=== PATIENT | female | born 1965 | race African-American/Black ===

== ENCOUNTER 2025-01-28 10:48 | Emergency (ER) | payer OTHER, MEDICAID ==
[2025-01-28] MEDS ORDERED: IOHEXOL 300 MG/ML 100 ML VIAL IV ONE (11:05)
[2025-01-28 11:15] LABS: BASO # 0.1 10*3/uL (0.0-0.1); BASO % 0.7 % (0.0-1.0); EOS # 0.2 10*3/uL (0.0-0.4); EOS % 2.9 % (1.0-4.0); HEMATOCRIT 37.2 % (37.0-47.0); MEAN CELL VOLUME 87.7 fl (81.0-99.0); MEAN CORPUSCULAR HGB 27.6 pg (27.0-31.0); MEAN CORPUSCULAR HGB CONC 31.5 g/dl (33.0-37.0); MEAN PLATELET VOLUME 9.7 fl (9.6-12.3); MONO # 0.7 10*3/uL (0.1-1.0); MONO % 7.9 % (3.0-9.0); NEUT # 5.8 10*3/uL (2.3-7.9); NEUT % 70.8 % (47.0-73.0); PLATELET COUNT AUTOMATED 337 10*3/uL (130-400); RED BLOOD COUNT 4.24 10*6/uL (4.10-5.10); RED CELL DISTRI WIDTH 15.4 % (0-14.5); WHITE BLOOD COUNT 8.2 10*3/uL (4.8-10.8)
[2025-01-28] MEDS ORDERED: IOHEXOL 300 MG/ML 100 ML VIAL ONE (11:27)
[2025-01-28 11:37] LABS: ALKALINE PHOSPHATASE 76 U/L (46-116); BUN 6 mg/dl (9-23); CHLORIDE 102 mmol/L (98-107); POTASSIUM 3.9 mmol/L (3.4-5.1); TOTAL PROTEIN 6.5 gm/dL (6.0-8.0)
[2025-01-28 11:41] LABS: SGPT/ALT < 7 U/L (5-49)
[2025-01-28 12:44] LABS: BILIRUBIN Negative (Negative); BLOOD Negative (Negative); CLARITY Clear (Clear); COLOR Yellow (Yellow); GLUCOSE Negative (Negative); KETONE 1+ (Negative); LEUKO ESTERASE Negative (Negative); NITRITE Positive (Negative); PH 7.5 (4.5-8.0); SPECIFIC GRAVITY >= 1.030 (1.001-1.030)
[2025-01-28 12:53] LABS: BACTERIA 3+; EPITHELIAL CELLS 0-2
[2025-01-28] MEDS ORDERED: CIPRO500 MG PO (13:03)
[2025-01-28] MEDS ORDERED: Ciprofloxacin Hydrochloride 500 MG TAB PO ONE (13:05)
== END 2025-01-28 14:00 ==
LOC: ED 10:48
PROVIDERS: Nurse Practitioner Family
DX: N39.0 Urinary tract infection, site not specified (principal); J45.909 Unspecified asthma, uncomplicated; E03.9 Hypothyroidism, unspecified; Z79.899 Other long term (current) drug therapy; Z88.6 Allergy status to analgesic agent; Z88.2 Allergy status to sulfonamides; Z88.8 Allergy status to other drugs, medicaments and biological substances

== ENCOUNTER 2025-08-23 11:33 | Emergency (ER) | payer OTHER, MEDICAID ==
[~2025-08-23] VITALS: Wt 82.6 kg
[~2025-08-23 11:33] MED LIST: ALBUTEROL2.5 MG/0.5 INH; AMOXICILLIN500 M3 PO; CIPRO500 MG PO; CLARITIN10 MG PO; DAILY VALUE1 EACH PO; ELIQUIS2.5 M1 PO; FEROSUL325 MG PO; LIPITOR40 MG PO; LYRICA25 M1 PO; MAGNESIUM400 M1 PO; MORPHINE SULFAT30 M1 PO; NATURE'S BLEND F1 MG PO; ONDANSETRON HYDR4 MG PO; OXYCODONE HCL10 M1 PO; POTASSIUM CHLO20 ME4 PO; SENNA8.6 MG PO; Synthroid,Lev200 MCG PO; VERAPAMIL HCL40 MG PO; VITAMIN D325 MCG PO; ZOLOFT50 MG PO; [UNRECOGNIZED DRUG - OTHER] PO
[2025-08-23] MEDS ORDERED: MAGNESIUM SULFATE 50 ML IV ONE (11:40)
[2025-08-23 12:01] LABS: MEAN CELL VOLUME 86.6 fl (81.0-99.0); MEAN CORPUSCULAR HGB 27.2 pg (27.0-31.0); MEAN PLATELET VOLUME 10.2 fl (9.6-12.3); NUCLEATED RED BLOOD CELL 0.0 % (0.0-0.0); NUCLEATED RED BLOOD CELL 0.0 10*3/uL (0.0-0.0); PLATELET COUNT AUTOMATED 264 10*3/uL (130-400); RED CELL DISTRI WIDTH 29.1 % (0-14.5)
[2025-08-23 12:05] LABS: MANUAL DIFF REFLEX YES
[2025-08-23 12:23] LABS: BASOPHILS 1 % (0-1); PLATELET SUFFICIENCY NORMAL (NORMAL)
[2025-08-23 12:24] LABS: VACUOLATION OF NEUTROPHILS SLIGHT
[2025-08-23 12:25] LABS: BUN 7 mg/dl (9-23)
[2025-08-23] MEDS ORDERED: POTASSIUM CHLORIDE 20 MEQ TAB PO ONE (12:30)
[2025-08-23] MEDS ORDERED: HEPARIN SODIUM 500 UNIT/5 ML SYR IV ONE (13:30)
== END 2025-08-23 13:30 | disposition home or self-care (01) ==
LOC: ED 11:33
PROVIDERS: Emergency Medicine
DX: R53.1 Weakness (principal); E87.6 Hypokalemia; E83.42 Hypomagnesemia; J45.909 Unspecified asthma, uncomplicated; E03.9 Hypothyroidism, unspecified; Z98.890 Other specified postprocedural states; Z88.6 Allergy status to analgesic agent; Z88.2 Allergy status to sulfonamides

== ENCOUNTER 2025-08-25 12:15 | Inpatient (IN) | payer OTHER, MEDICAID ==
[~2025-08-25] VITALS: Ht 170.1 cm; Wt 81.0 kg
[2025-08-25 12:25] VITALS: BP 82/45
[2025-08-25] MEDS ORDERED: Potassium Bicarbonate/Potass 25 MEQ TAB PO ONE (12:40)
[2025-08-25] MEDS ORDERED: SODIUM CHLORIDE 0.9% 500 ML IV ONE (12:40)
[2025-08-25] MEDS ORDERED: MAGNESIUM SULFATE 50 ML IV ONE ×2 (12:40→15:40)
[2025-08-25 13:04] LABS: MEAN CELL VOLUME 87.7 fl (81.0-99.0); MEAN CORPUSCULAR HGB 27.8 pg (27.0-31.0); MEAN PLATELET VOLUME 10.0 fl (9.6-12.3); NUCLEATED RED BLOOD CELL 0.0 10*3/uL (0.0-0.0); NUCLEATED RED BLOOD CELL 0.3 % (0.0-0.0); PLATELET COUNT AUTOMATED 205 10*3/uL (130-400); RED CELL DISTRI WIDTH 29.9 % (0-14.5)
[2025-08-25 13:05] LABS: MANUAL DIFF REFLEX YES
[2025-08-25 13:24] LABS: BASOPHILS 1 % (0-1); DOHLE BODIES FEW
[2025-08-25 13:25] LABS: PLATELET SUFFICIENCY NORMAL (NORMAL); VACUOLATION OF NEUTROPHILS SLIGHT
[2025-08-25] MEDS ORDERED: SODIUM CHLORIDE 0.9% 1,000 ML IV ONE (15:40)
[2025-08-25] MEDS ORDERED: ACETAMINOPHEN 325 MG TAB PO PRN (15:45)
[2025-08-25] MEDS ORDERED: Ondansetron Hydrochloride 4 MG/2 ML VIAL IV PRN (15:45)
[2025-08-25] MEDS ORDERED: TEMAZEPAM 15 MG CAP PO PRN (15:45)
[2025-08-25] MEDS ORDERED: Acetaminophen/Hydrocodone 5 MG/325 MG TABLET PO PRN (15:45)
[2025-08-25 16:45] VITALS: BP 108/80
[2025-08-25] MEDS ORDERED: BIOFREEZE T (18:55)
[2025-08-25 20:00] VITALS: BP 93/62
[2025-08-25] MEDS ORDERED: APIXABAN 5 MG TAB PO SCH (22:00)
[2025-08-25] MEDS ORDERED: APIXABAN 2.5 MG TABLET PO SCH (22:00)
[2025-08-26] VITALS: BP 96/62
[2025-08-26] MEDS ORDERED: FOAM BANDAGE 1 EACH BANDAGE T ONE (02:55)
[2025-08-26 06:03] LABS: MEAN CELL VOLUME 89.9 fl (81.0-99.0); MEAN CORPUSCULAR HGB 28.1 pg (27.0-31.0); MEAN PLATELET VOLUME 10.5 fl (9.6-12.3); NUCLEATED RED BLOOD CELL 0.0 10*3/uL (0.0-0.0); NUCLEATED RED BLOOD CELL 0.1 % (0.0-0.0); PLATELET COUNT AUTOMATED 186 10*3/uL (130-400); RED CELL DISTRI WIDTH 29.4 % (0-14.5)
[2025-08-26 06:06] LABS: MANUAL DIFF REFLEX YES
[2025-08-26 06:22] LABS: BUN 5 mg/dl (9-23); FREE T4 0.79 ng/dl (0.89-1.76); LDL CHOLESTEROL 66 mg/dL (9-159); SGPT/ALT 16 U/L (5-49)
[2025-08-26] MEDS ORDERED: POTASSIUM CHLORIDE 20 MEQ TAB PO ONE ×2 (06:55→12:00)
[2025-08-26] MEDS ORDERED: MAGNESIUM SULFATE 50 ML IV ONE (07:00)
[2025-08-26 07:04] LABS: DOHLE BODIES FEW; PLATELET SUFFICIENCY NORMAL (NORMAL)
[2025-08-26] MEDS ORDERED: OXYCODONE HCL (IR) 10 MG TABLET PO PRN (07:05)
[2025-08-26] MEDS ORDERED: SODIUM CHLORIDE 0.9% 1,000 ML IV ONE (07:20)
[2025-08-26] MEDS ORDERED: AMOXICILLIN 500 MG CAP PO SCH (07:23)
[2025-08-26] MEDS ORDERED: VERAPAMIL HYDROCHLORIDE PO SCH (07:26)
[2025-08-26 08:00] VITALS: BP 101/61
[2025-08-26] MEDS ORDERED: Ondansetron Hydrochloride 4 MG TAB PO SCH (10:00)
[2025-08-26] MEDS ORDERED: POTASSIUM CHLORIDE 20 MEQ TAB PO SCH (10:00)
[2025-08-26] MEDS ORDERED: LORATADINE 10 MG TAB PO SCH (10:00)
[2025-08-26] MEDS ORDERED: PREGABALIN 25 MG CAP PO SCH (10:00)
[2025-08-26] MEDS ORDERED: Vitamin D 1,000 IU TAB (25 MCG) PO SCH (10:00)
[2025-08-26] MEDS ORDERED: APIXABAN 2.5 MG TABLET PO SCH (10:00)
[2025-08-26] MEDS ORDERED: FOLIC ACID 1 MG TAB PO SCH (10:00)
[2025-08-26] MEDS ORDERED: Lactobacillus Acidophilus/LA 1 TAB TAB PO SCH (10:00)
[2025-08-26] MEDS ORDERED: POTASSIUM CHLORIDE 40 MEQ in SODIUM CHLORIDE 0.9% 1,000 ML IV ONE (11:00)
[2025-08-26 12:00] VITALS: BP 103/51
[2025-08-26] MEDS ORDERED: PROCHLORPERAZINE 25 MG SUPP R PRN (14:00)
[2025-08-26 17:35] VITALS: BP 103/47
[2025-08-26] MEDS ORDERED: CHOLESTYRAMINE 4 GM PACKET PO SCH (18:00)
[2025-08-26 18:01] LABS: BUN < 5 mg/dl (9-23)
[2025-08-26 20:00] VITALS: BP 91/40
[2025-08-26] MEDS ORDERED: ATORVASTATIN CALCIUM 40 MG TABLET PO SCH (22:00)
[2025-08-27] VITALS: BP 92/47
[2025-08-27 05:47] LABS: BUN 6 mg/dl (9-23)
[2025-08-27] MEDS ORDERED: POTASSIUM CHLORIDE 40 MEQ in SODIUM CHLORIDE 0.9% 1,000 ML IV ONE (07:15)
[2025-08-27] MEDS ORDERED: MAGNESIUM SULFATE 100 ML IV ONE (07:15)
[2025-08-27 08:00] VITALS: BP 102/52
[2025-08-27] MEDS ORDERED: LIDOCAINE 5% ANORECTAL CREAM T ONE (08:40)
[2025-08-27 09:19] LABS: BILIRUBIN Negative (Negative); BLOOD 2+ (Negative); CLARITY Cloudy (Clear); COLOR Yellow (Yellow); KETONE Negative (Negative); LEUKO ESTERASE 2+ (Negative); NITRITE Positive (Negative); PH 5.5 (4.5-8.0); SPECIFIC GRAVITY 1.020 (1.001-1.030); UROBILINOGEN 0.2 E.U./dl (0.0-1.0)
[2025-08-27 09:56] LABS: BACTERIA 3+
[2025-08-27] MEDS ORDERED: MAGNESIUM OXIDE 400 MG TAB PO SCH (10:00)
[2025-08-27 10:10] LABS: MEAN CELL VOLUME 88.3 fl (81.0-99.0); MEAN CORPUSCULAR HGB 27.7 pg (27.0-31.0); MEAN PLATELET VOLUME 9.8 fl (9.6-12.3); NUCLEATED RED BLOOD CELL 0.0 10*3/uL (0.0-0.0); NUCLEATED RED BLOOD CELL 0.1 % (0.0-0.0); PLATELET COUNT AUTOMATED 170 10*3/uL (130-400); RED CELL DISTRI WIDTH 29.8 % (0-14.5)
[2025-08-27] MEDS ORDERED: Atropine Sulfate/Diphenoxyla 1 TAB TAB PO ONE ×2 (10:10→12:10)
[2025-08-27 10:29] LABS: MANUAL DIFF REFLEX YES
[2025-08-27 10:41] LABS: PLATELET SUFFICIENCY NORMAL (NORMAL)
[2025-08-27] MEDS ORDERED: BARIUM SULFATE 2% 450 ML BOT PO SCH (11:00)
[2025-08-27] MEDS ORDERED: Potassium Bicarbonate/Potass 25 MEQ TAB PO ONE (11:35)
[2025-08-27 12:00] VITALS: BP 106/51
[2025-08-27] MEDS ORDERED: POTASSIUM CHLORIDE IN WATER 100 ML IV SCH (12:00)
[2025-08-27 16:00] VITALS: BP 95/54
[2025-08-27 17:57] LABS: BUN < 5 mg/dl (9-23)
[2025-08-27] MEDS ORDERED: POTASSIUM CHLORIDE 20 MEQ TAB PO ONE ×2 (19:00→19:05)
[2025-08-27 20:00] VITALS: BP 89/53
[2025-08-27 21:45] VITALS: BP 82/42
[2025-08-27] MEDS ORDERED: Potassium Bicarbonate/Potass 25 MEQ TAB PO SCH (22:00)
[2025-08-27] MEDS ORDERED: SODIUM CHLORIDE 0.9% 500 ML IV ONE (22:05)
[2025-08-28] VITALS: BP 83/42
[2025-08-28] MEDS ORDERED: Menthol/Zinc Oxide 4 GM THIN T PRN (03:55)
[2025-08-28 05:07] VITALS: BP 87/52
[2025-08-28] MEDS ORDERED: SODIUM CHLORIDE 0.9% 500 ML IV ONE (05:50)
[2025-08-28 06:12] LABS: MEAN CELL VOLUME 88.6 fl (81.0-99.0); MEAN CORPUSCULAR HGB 27.8 pg (27.0-31.0); MEAN PLATELET VOLUME 10.1 fl (9.6-12.3); NUCLEATED RED BLOOD CELL 0.0 10*3/uL (0.0-0.0); NUCLEATED RED BLOOD CELL 0.1 % (0.0-0.0); PLATELET COUNT AUTOMATED 156 10*3/uL (130-400); RED CELL DISTRI WIDTH 30.0 % (0-14.5)
[2025-08-28 06:27] LABS: BUN < 5 mg/dl (9-23)
[2025-08-28 06:49] LABS: MANUAL DIFF REFLEX YES
[2025-08-28 06:55] LABS: PLATELET SUFFICIENCY NORMAL (NORMAL)
[2025-08-28] MEDS ORDERED: MAGNESIUM SULFATE 50 ML IV SCH (07:20)
[2025-08-28] MEDS ORDERED: POTASSIUM CHLORIDE 40 MEQ in SODIUM CHLORIDE 0.9% 1,000 ML IV ONE (07:45)
[2025-08-28 08:00] VITALS: BP 88/45
[2025-08-28] MEDS ORDERED: POTASSIUM CHLORIDE IN WATER 100 ML IV SCH ×2 (08:00→13:00)
[2025-08-28] MEDS ORDERED: Atropine Sulfate/Diphenoxyla 1 TAB TAB PO SCH (10:00)
[2025-08-28] MEDS ORDERED: Potassium Bicarbonate/Potass 25 MEQ TAB PO SCH (10:40)
[2025-08-28 12:00] VITALS: BP 97/53
[2025-08-28 12:14] LABS: BUN < 5 mg/dl (9-23)
[2025-08-28] MEDS ORDERED: FOAM BANDAGE 5X5 T ONE (14:32)
[2025-08-28 16:00] VITALS: BP 95/56
[2025-08-28] MEDS ORDERED: VANCOMYCIN HCL 250 MG CAPSULE PO SCH (18:00)
[2025-08-28 19:20] LABS: BUN < 5 mg/dl (9-23)
[2025-08-28 20:00] VITALS: BP 87/46
[2025-08-29] VITALS: BP 85/45
[2025-08-29 06:22] LABS: MEAN CELL VOLUME 86.7 fl (81.0-99.0); MEAN CORPUSCULAR HGB 27.3 pg (27.0-31.0); MEAN PLATELET VOLUME 10.9 fl (9.6-12.3); NUCLEATED RED BLOOD CELL 0.0 10*3/uL (0.0-0.0); NUCLEATED RED BLOOD CELL 0.1 % (0.0-0.0); PLATELET COUNT AUTOMATED 136 10*3/uL (130-400); RED CELL DISTRI WIDTH 30.4 % (0-14.5)
[2025-08-29 06:38] LABS: SGPT/ALT 21 U/L (5-49)
[2025-08-29 06:39] LABS: BUN < 5 mg/dl (9-23)
[2025-08-29] MEDS ORDERED: POTASSIUM CHLORIDE 100 ML IV ONE (07:00)
[2025-08-29] MEDS ORDERED: MAGNESIUM SULFATE 100 ML IV ONE (07:00)
[2025-08-29] MEDS ORDERED: SODIUM PHOSPHATE 30 MMOL in SODIUM CHLORIDE 0.9% 500 ML IV ONE (07:15)
[2025-08-29 07:29] LABS: MANUAL DIFF REFLEX YES
[2025-08-29] MEDS ORDERED: POTASSIUM CHLORIDE 40 MEQ in SODIUM CHLORIDE 0.9% 1,000 ML IV ONE (07:30)
[2025-08-29 07:45] LABS: PLATELET SUFFICIENCY NORMAL (NORMAL)
[2025-08-29 07:47] LABS: DOHLE BODIES FEW
[2025-08-29 08:00] VITALS: BP 94/51
[2025-08-29 12:00] VITALS: BP 87/45
[2025-08-29] MEDS ORDERED: POTASSIUM CHLORIDE 40 MEQ in SODIUM CHLORIDE 0.45% 1,000 ML IV SCH (14:00)
[2025-08-29 16:00] VITALS: BP 91/45
[2025-08-29 18:48] LABS: BUN < 5 mg/dl (9-23)
[2025-08-29 20:00] VITALS: BP 102/43; BP 155/82
[2025-08-29 23:54] VITALS: BP 78/32
[2025-08-30] VITALS (11 sets, daily range): BP systolic 64–97; BP diastolic 31–57
[2025-08-30 05:26] LABS: SGPT/ALT 21 U/L (5-49)
[2025-08-30 05:30] LABS: BUN < 5 mg/dl (9-23)
[2025-08-30 06:25] LABS: MEAN CELL VOLUME 88.8 fl (81.0-99.0); MEAN CORPUSCULAR HGB 28.5 pg (27.0-31.0); MEAN PLATELET VOLUME 10.7 fl (9.6-12.3); NUCLEATED RED BLOOD CELL 0.0 10*3/uL (0.0-0.0); NUCLEATED RED BLOOD CELL 0.1 % (0.0-0.0); PLATELET COUNT AUTOMATED 120 10*3/uL (130-400); RED CELL DISTRI WIDTH 31.1 % (0-14.5)
[2025-08-30 06:31] LABS: MANUAL DIFF REFLEX YES
[2025-08-30] MEDS ORDERED: POTASSIUM CHLORIDE 100 ML IV SCH (07:00)
[2025-08-30] MEDS ORDERED: MAGNESIUM SULFATE 50 ML IV SCH (07:00)
[2025-08-30 07:10] LABS: PLATELET SUFFICIENCY LOW (NORMAL)
[2025-08-30] MEDS ORDERED: Fosfomycin Tromethamine 3 GM PDS PO ONE (11:35)
[2025-08-30] MEDS ORDERED: AMOXICILLIN 500 MG CAP PO SCH (22:00)
[2025-08-31] VITALS: BP 103/64
[2025-08-31 06:17] LABS: BUN < 5 mg/dl (9-23)
[2025-08-31 06:30] LABS: MEAN CELL VOLUME 87.5 fl (81.0-99.0); MEAN CORPUSCULAR HGB 27.8 pg (27.0-31.0); NUCLEATED RED BLOOD CELL 0.0 % (0.0-0.0); NUCLEATED RED BLOOD CELL 0.0 10*3/uL (0.0-0.0); PLATELET COUNT AUTOMATED 114 10*3/uL (130-400); RED CELL DISTRI WIDTH 31.2 % (0-14.5)
[2025-08-31 06:31] LABS: MANUAL DIFF REFLEX YES
[2025-08-31 07:24] LABS: PLATELET SUFFICIENCY LOW (NORMAL)
[2025-08-31] MEDS ORDERED: MAGNESIUM SULFATE 50 ML IV ONE (07:40)
[2025-08-31 08:00] VITALS: BP 107/71
[2025-08-31 12:00] VITALS: BP 126/58
[2025-08-31] MEDS ORDERED: Lactobacillus Acidophilus/LA 1 TAB TAB PO SCH (14:00)
[2025-08-31 16:00] VITALS: BP 106/58
[2025-08-31 20:00] VITALS: BP 90/53
[2025-09-01] VITALS: BP 95/50
[2025-09-01 06:10] LABS: MEAN CELL VOLUME 86.6 fl (81.0-99.0); MEAN CORPUSCULAR HGB 28.2 pg (27.0-31.0); NUCLEATED RED BLOOD CELL 0.0 % (0.0-0.0); NUCLEATED RED BLOOD CELL 0.0 10*3/uL (0.0-0.0); PLATELET COUNT AUTOMATED 109 10*3/uL (130-400); RED CELL DISTRI WIDTH 30.8 % (0-14.5)
[2025-09-01 06:57] LABS: BUN < 5 mg/dl (9-23)
[2025-09-01 07:56] LABS: MANUAL DIFF REFLEX YES
[2025-09-01 08:00] VITALS: BP 118/69
[2025-09-01 08:00] LABS: PLATELET SUFFICIENCY LOW (NORMAL)
[2025-09-01] MEDS ORDERED: MAGNESIUM SULFATE 50 ML IV SCH (08:00)
[2025-09-01] MEDS ORDERED: POTASSIUM CHLORIDE 20 MEQ TAB PO ONE (09:15)
[2025-09-01 12:00] VITALS: BP 124/82
[2025-09-01 16:00] VITALS: BP 102/60
[2025-09-01] MEDS ORDERED: POTASSIUM CHLORIDE 100 ML IV SCH (16:00)
[2025-09-01] MEDS ORDERED: POTASSIUM CHLORIDE 40 MEQ in SODIUM CHLORIDE 0.9% 1,000 ML IV ONE (16:00)
[2025-09-01 18:24] LABS: BUN < 5 mg/dl (9-23)
[2025-09-01 20:00] VITALS: BP 104/45
[2025-09-01] MEDS ORDERED: Bacitracin Zinc/Neomycin/Pol 15 GM TUBE T SCH (22:00)
[2025-09-02] VITALS: BP 91/53
[2025-09-02 07:16] LABS: MEAN CELL VOLUME 86.2 fl (81.0-99.0); MEAN CORPUSCULAR HGB 28.2 pg (27.0-31.0); NUCLEATED RED BLOOD CELL 0.0 % (0.0-0.0); NUCLEATED RED BLOOD CELL 0.0 10*3/uL (0.0-0.0); PLATELET COUNT AUTOMATED 116 10*3/uL (130-400); RED CELL DISTRI WIDTH 30.9 % (0-14.5)
[2025-09-02 07:41] LABS: MANUAL DIFF REFLEX YES
[2025-09-02 07:43] LABS: BUN < 5 mg/dl (9-23)
[2025-09-02 07:44] LABS: PLATELET SUFFICIENCY LOW (NORMAL)
[2025-09-02 08:00] VITALS: BP 113/58
[2025-09-02] MEDS ORDERED: POTASSIUM CHLORIDE 40 MEQ in Lactated Ringer's Solution 1,000 ML IV SCH (10:10)
[2025-09-02] MEDS ORDERED: POTASSIUM CHLORIDE 100 ML IV ONE (10:48)
[2025-09-02] MEDS ORDERED: POTASSIUM CHLORIDE 100 ML IV SCH (11:00)
[2025-09-02 11:44] VITALS: BP 138/64
[2025-09-02] MEDS ORDERED: MAGNESIUM SULFATE 50 ML IV SCH (12:00)
[2025-09-02 16:00] VITALS: BP 117/63
[2025-09-02 16:42] LABS: BUN < 5 mg/dl (9-23)
[2025-09-02 20:40] VITALS: BP 126/60
[2025-09-02] MEDS ORDERED: POTASSIUM CHLORIDE IN WATER 100 ML IV SCH (23:00)
[2025-09-02 23:18] LABS: BUN < 5 mg/dl (9-23)
[2025-09-03] VITALS: BP 114/55
[2025-09-03 07:02] LABS: BUN < 5 mg/dl (9-23)
[2025-09-03] MEDS ORDERED: MAGNESIUM SULFATE 50 ML IV ONE ×2 (07:05→10:40)
[2025-09-03 08:00] VITALS: BP 122/58
[2025-09-03] MEDS ORDERED: POTASSIUM CHLORIDE 100 ML IV SCH (11:00)
[2025-09-03 12:00] VITALS: BP 121/54
== END 2025-09-03 14:00 | disposition short-term general hospital (02) | DRG 640 ==
LOC: ED 12:15 → EDHOLD 14:28 → 5E 14:28
PROVIDERS: Emergency Medicine; Family Medicine; Internal Medicine; Internal Medicine Nephrology; Registered Nurse; Student in an Organized Health Care Education/Training Program; ADMIT Internal Medicine; ATTEND Internal Medicine
DX: E87.6 Hypokalemia (principal); E43 Unspecified severe protein-calorie malnutrition; N30.00 Acute cystitis without hematuria; I50.32 Chronic diastolic (congestive) heart failure; A42.9 Actinomycosis, unspecified; Z16.12 Extended spectrum beta lactamase (ESBL) resistance; E83.42 Hypomagnesemia; B96.1 Klebsiella pneumoniae [K. pneumoniae] as the cause of diseases classified elsewhere; R19.7 Diarrhea, unspecified; I48.91 Unspecified atrial fibrillation; J45.909 Unspecified asthma, uncomplicated; F32.A Depression, unspecified; E78.5 Hyperlipidemia, unspecified; I11.0 Hypertensive heart disease with heart failure; E03.9 Hypothyroidism, unspecified; G62.9 Polyneuropathy, unspecified; D64.9 Anemia, unspecified; D72.828 Other elevated white blood cell count; L89.156 Pressure-induced deep tissue damage of sacral region; E83.39 Other disorders of phosphorus metabolism; S81.012A Laceration without foreign body, left knee, initial encounter; Z88.2 Allergy status to sulfonamides; Z88.8 Allergy status to other drugs, medicaments and biological substances; Z91.09 Other allergy status, other than to drugs and biological substances; Z79.899 Other long term (current) drug therapy; Z86.73 Personal history of transient ischemic attack (TIA), and cerebral infarction without residual deficits; Z90.711 Acquired absence of uterus with remaining cervical stump; Z87.891 Personal history of nicotine dependence; Z51.11 Encounter for antineoplastic chemotherapy; Z79.01 Long term (current) use of anticoagulants; Z86.718 Personal history of other venous thrombosis and embolism; Z79.2 Long term (current) use of antibiotics; Z68.27 Body mass index [BMI] 27.0-27.9, adult; Z83.3 Family history of diabetes mellitus; Z83.438 Family history of other disorder of lipoprotein metabolism and other lipidemia; Z85.54 Personal history of malignant neoplasm of ureter; X58.XXXA Exposure to other specified factors, initial encounter; Y93.89 Activity, other specified; Y92.89 Other specified places as the place of occurrence of the external cause; Y99.8 Other external cause status